=== PATIENT | female | born 1985 | race Caucasian/White ===

== ENCOUNTER 2016-09-18 08:30 | Emergency (ER) | payer BC ==
--- NOTE | 2016-09-18 08:40 | EDM.PDOC ---
ED HPI GENERAL MEDICAL PROBLEM - General Chief Complaint: Abdominal Pain Stated Complaint: [id number] PAIN IN RIGHT ABDOMEN Time Seen by Provider: 09/18/16 08:37 Source of Information: Reports: Patient, Old Records, RN, RN Notes Reviewed History Limitations: Reports: No Limitations - History of Present Illness INITIAL COMMENTS - FREE TEXT/NARRATIVE: Arrives from home by POV with c/o onset of RUQ abdominal pain a couple of days ago. Pt states that she had been constipated and use a laxative which resulted in several bowel movements, but the pain did not go away. Now the pain has moved lower and increased. She admits to mild nausea on/off. Denies radiating pain, fever, chills, vomiting, diarrhea, abdominal distention, or urinary Sx's. Onset: Gradual Duration: Day(s): (2) Location: Reports: Abdomen Quality: Reports: Ache Severity: Moderate Improves with: Reports: None Worsens with: Reports: None Context: Denies: Activity, Exercise, Lifting, Sick Contact, Trauma Associated Symptoms: Reports: No Other Symptoms Treatments [employer]PER[employer]OR: Reports: Home Treatments Right Upper Abdomen Pain Score (Numeric/FACES): 8 - Related Data Allergies Allergy/AdvReac Type Severity Reaction Status Date / Time morphine Allergy Itching Verified 12/16/14 06:01 peanut Allergy Shortness Verified 12/16/14 06:01 of Breath cat dander Allergy Shortness Uncoded 12/16/14 06:01 of Breath Home Meds: Home Meds Levonorgestrel [Mirena] 1 unit VAG ASDIRECTED 01/31/14 [History] Ketoconazole [Ketoconazole 2%] 1 applic TOP ASDIRECTED 03/08/14 [History] Clobetasol [Clobetasol 0.05%] 1 squirt TOP ASDIRECTED 12/12/14 [History] Hydrocortisone [Anusol-HC] 1 squirt TOP BID PRN 12/15/14 [History] Adalimumab [Humira] 09/18/16 [History] Past Medical History Gastrointestinal History: Reports: Cholelithiasis Endocrine/Metabolic History: Reports: Obesity/BMI 30+ - Past Surgical History GI Surgical History: Reports: Cholecystectomy, Colonoscopy Social & Family History - Family History Cardiac: Reports: CAD Neurological: Reports: CVA - Tobacco Use Smoking Status *Q: Current Every Day Smoker Tobacco Use Within Last Twelve Months: Cigarettes Years of Tobacco use: 9 Used Tobacco, but Quit: No Smoking Cessation Information Provided To Patient: Patient Refused Second Hand Smoke Exposure: No Second Hand Smoke Education Provided: No - Alcohol Use Days Per Week of Alcohol Use: 0 - Recreational Drug Use Recreational Drug Use: No - Living Situation & Occupation Living situation: Reports: Occupation: Employed ED ROS GENERAL - Review of Systems Review Of Systems: ROS reveals no pertinent complaints other than HPI. ED EXAM, GI/ABD - Physical Exam Exam: See Below Exam Limited By: No Limitations General Appearance: Alert, WD/WN, No Apparent Distress, Obese Eyes: Bilateral: Normal Appearance Throat/Mouth: Normal Inspection Head: Atraumatic, Normocephalic Neck: Normal Inspection Respiratory/Chest: No Respiratory Distress, Lungs Clear, Normal Breath Sounds, No Accessory Muscle Use, Chest Non-Tender Cardiovascular: Regular Rate, Rhythm GI/Abdominal: Normal Bowel Sounds, Soft, No Distention, No Abnormal Bruit, Tenderness (RLQ), Rebound. No: Guarding, Rigidity (Female) Exam: Deferred Rectal (Female) Exam: Deferred Back Exam: Normal Inspection Extremities: Normal Inspection Neurological: Alert, Oriented, CN II-XII Intact, Normal Cognition, Normal Gait, No Motor/Sensory Deficits Psychiatric: Normal Affect, Normal Mood Skin Exam: Warm, Dry, Intact, Normal Color, No Rash Course - Vital Signs Last Recorded V/S: Last Vital Signs Temp 36.6 C 09/18/16 08:40 Pulse 100 09/18/16 08:40 Resp 16 09/18/16 08:40 BP 153/107 H 09/18/16 08:40 Pulse Ox 97 09/18/16 08:40 - Orders/Labs/Meds Orders: Active Orders 24 hr Category Date Time Status Peripheral IV Care [RC] . DIRECTED Care 09/18/16 08:57 Active Abdomen Pelvis w Cont [CT] Stat Exams 09/18/16 08:58 Taken Sodium Chloride 0.9% [Saline Flush] Med 09/18/16 08:56 Active 10 ml FLUSH ASDIRECTED PRN Peripheral IV Insertion Adult [OM.PC] Stat Oth 09/18/16 08:56 Ordered Medication Orders Sodium Chloride (Saline Flush) 10 ml FLUSH ASDIRECTED PRN PRN Reason: Keep Vein Open Labs: Laboratory Tests 09/18/16 09/18/1609/18/17 Range/Units 09:09 09:09 09:10 WBC 7.5 (5.0-10.0) 10^3/uL RBC 4.95 (4.2-5.4) 10^6/uL Hgb 14.8 (12.0-16.0) g/dL Hct 45.1 (37.0-47.0) % MCV 91.1 (80-100) fL MCH 29.9 (27.0-34.0) pg MCHC 32.8 L (33.0-35.0) g/dL Plt Count 224 (150-450) 10^3/uL Neut % (Auto) 61.1 (42.2-75.2) % Lymph % (Auto) 24.6 (20.5-50.1) % Bond % (Auto) 8.9 H (2-8) % Eos % (Auto) 5.1 H (1.0-3.0) % Baso % (Auto) 0.3 (0.0-1.0) % Sodium 141 (135-145) mmol/L Potassium 3.9 (3.6-5.0) mmol/L Chloride 107 (101-111) mmol/L Carbon Dioxide 23.0 (21.0-31.0) mmol/L Anion Gap 14.9 BUN 11 (7-18) mg/dL Creatinine 0.7 (0.6-1.3) mg/dL Est Cr Clr Drug Dosing 121.69 mL/min Estimated GFR (MDRD) > 60 BUN/Creatinine Ratio 15.71 Glucose 101 (74-105) mg/dL Calcium 9.1 (8.4-10.2) mg/dl Total Bilirubin 0.5 (0.2-1.0) mg/dL AST 23 (10-42) IU/L ALT 36 (10-60) IU/L Alkaline Phosphatase 60 (42-121) IU/L Total Protein 7.7 (6.7-8.2) g/dl Albumin 4.2 (3.2-5.5) g/dl Globulin 3.5 Albumin/Globulin Ratio 1.20 Amylase 38 (28-100) U/L Lipase 31 (22-51) U/L Urine Color (YELLOW) Urine Appearance (CLEAR) Urine pH (5.0-9.0) Ur Specific [place] (1.005-1.030) Urine Protein (NEGATIVE) Urine Glucose (UA) (NEGATIVE) Urine Ketones (NEGATIVE) Urine Occult Blood (NEGATIVE) Urine Nitrite (NEGATIVE) Urine Bilirubin (NEGATIVE) Urine Urobilinogen (0.2-1.0) mg/dL Ur Leukocyte Esterase (NEGATIVE) Urine RBC /HPF Urine WBC (0-5/HPF) /HPF Ur Epithelial Cells /HPF Urine Bacteria (0-FEW/HPF) /HPF Urine HCG, Qual Negative 09/18/16 Range/Units 09:10 WBC (5.0-10.0) 10^3/uL RBC (4.2-5.4) 10^6/uL Hgb (12.0-16.0) g/dL Hct (37.0-47.0) % MCV (80-100) fL MCH (27.0-34.0) pg MCHC (33.0-35.0) g/dL Plt Count (150-450) 10^3/uL Neut % (Auto) (42.2-75.2) % Lymph % (Auto) (20.5-50.1) % Bond % (Auto) (2-8) % Eos % (Auto) (1.0-3.0) % Baso % (Auto) (0.0-1.0) % Sodium (135-145) mmol/L Potassium (3.6-5.0) mmol/L Chloride (101-111) mmol/L Carbon Dioxide (21.0-31.0) mmol/L Anion Gap BUN (7-18) mg/dL Creatinine (0.6-1.3) mg/dL Est Cr Clr Drug Dosing mL/min Estimated GFR (MDRD) BUN/Creatinine Ratio Glucose (74-105) mg/dL Calcium (8.4-10.2) mg/dl Total Bilirubin (0.2-1.0) mg/dL AST (10-42) IU/L ALT (10-60) IU/L Alkaline Phosphatase (42-121) IU/L Total Protein (6.7-8.2) g/dl Albumin (3.2-5.5) g/dl Globulin Albumin/Globulin Ratio Amylase (28-100) U/L Lipase (22-51) U/L Urine Color Yellow (YELLOW) Urine Appearance Slightly cloudy (CLEAR) Urine pH 7.0 (5.0-9.0) Ur Specific [place] 1.015 (1.005-1.030) Urine Protein Negative (NEGATIVE) Urine Glucose (UA) Negative (NEGATIVE) Urine Ketones Negative (NEGATIVE) Urine Occult Blood Negative (NEGATIVE) Urine Nitrite Negative (NEGATIVE) Urine Bilirubin Negative (NEGATIVE) Urine Urobilinogen 0.2 (0.2-1.0) mg/dL Ur Leukocyte Esterase Trace H (NEGATIVE) Urine RBC Not seen /HPF Urine WBC 0-5 (0-5/HPF) /HPF Ur Epithelial Cells Many H /HPF Urine Bacteria Moderate H (0-FEW/HPF) /HPF Urine HCG, Qual Meds: Medications Generic Name Dose Route Start Last Admin Trade Name Freq PRN Reason Stop Dose Admin Sodium Chloride 10 ml 09/18/16 08:56 Saline Flush FLUSH ASDIRECTED PRN Keep Vein Open Discontinued Medications Generic Name Dose Route Start Last Admin Trade Name Freq PRN Reason Stop Dose Admin Iopamidol 100 ml 09/18/16 08:57 09/18/16 09:45 Isovue-300 (61%) IVPUSH 09/18/16 08:58 125 ml ONETIME ONE Administration Pt declined pain medication. - Radiology Interpretation Free Text/Narrative:: CT Abd/Pelvis: normal appendix, no acute pathology per Rad. report; moderately lrg. stool burden. CT Results Date: 09/18/16 Departure - Departure Time of Disposition: 09:57 Disposition: Home, Self-Care 01 Condition: Good Clinical Impression: Elevated blood pressure reading without diagnosis of hypertension Abdominal pain Qualifiers: Abdominal location: right lower quadrant Qualified Code(s): R10.31 - Right lower quadrant pain Constipation Qualifiers: Constipation type: unspecified constipation type Qualified Code(s): K59.00 - Constipation, unspecified - Discharge Information Instructions: Constipation, Adult, [id number], Abdominal Pain, Adult, Easy-to -Read, Hypertension, [id number] Forms: ED Department Discharge Additional Instructions: Rx: Zofran 4mg Drink plenty of water. Follow up in clinic in 2 days if not improved. Return to ER if you develop a fever, or severe pain. Monitor your blood pressure several times a week, and see your primary doctor about your blood pressure some time next week. - My Orders Last 24 Hours: My Active Orders 09/18/16 08:56 Sodium Chloride 0.9% [Saline Flush] 10 ml FLUSH ASDIRECTED PRN Peripheral IV Insertion Adult [OM.PC] Stat 09/18/16 08:57 Peripheral IV Care [RC] . DIRECTED 09/18/16 08:58 Abdomen Pelvis w Cont [CT] Stat - Assessment/Plan Last 24 Hours: My Active Orders 09/18/16 08:56 Sodium Chloride 0.9% [Saline Flush] 10 ml FLUSH ASDIRECTED PRN Peripheral IV Insertion Adult [OM.PC] Stat 09/18/16 08:57 Peripheral IV Care [RC] . DIRECTED 09/18/16 08:58 Abdomen Pelvis w Cont [CT] Stat
[2016-09-18 08:42] VITALS: BP 153/107
[2016-09-18] MEDS ORDERED: Sodium Chloride 0.9% 10 ML Syringe FLUSH PRN (08:56)
[2016-09-18] MEDS ORDERED: Iopamidol 612 MG/ML 100 ML Bottle IVPUSH ONE (08:57)
[2016-09-18 09:36] LABS: CHLORIDE,CL 107 mmol/L (101-111); SODIUM,NA 141 mmol/L (135-145)
[2016-09-18] MEDS ORDERED: Bisacodyl 5 MG Tab PO ONE (10:04)
--- NOTE | 2016-09-18 10:21 | CT ---
CLINICAL HISTORY: 30-year-old 280 pound female with right abdominal pain and now "rebound" who has h ad a previous cholecystectomy (white blood cell count 7500). Rule out appendicitis or other intraper itoneal abnormality. SCAN TECHNIQUE: Volume acquisition of data from the abdomen and pelvis obtained during the intraveno us administration 7 125 cc nonionic Isovue contrast while the patient was lying supine on the [employer] s multislice scanner [place], [place]. All data archived in the PACS system for storage, reformatting and study. INTERPRETATION: Surgical clips gallbladder fossa. Liver, stomach, spleen, pancreas, adrenal glands a nd kidneys anatomically correct and otherwise unremarkable. Normal appendix RLQ. No sign of calcified appendicolith, periappendiceal inflammatory "dirty" perito colette fat, abscess or mechanical bowel obstruction. No abdominal mass lesion, retroperitoneal adenopathy, signs of mechanical bowel obstruction, ascites or free air. IUD. 5 cm diameter cyst left adnexa presumably originates in the ovary. No other pelvic mass or ly mphadenopathy. Normal caliber aortoiliac vessels. Lumbar lordosis. No pathologic skeletal lesion, fracture or spond ylolisthesis. Platelike atelectasis left base. Normal cardiac silhouette. Lung bases otherwise clear. CONCLUSION: Cholecystectomy. IUD. Large left ovarian cyst. Normal appendix.
== END 2016-09-18 10:20 | disposition home or self-care (01) ==
LOC: DL.ED 08:30
DX: R10.31 Right lower quadrant pain (principal); K59.00 Constipation, unspecified; R03.0 Elevated blood-pressure reading, without diagnosis of hypertension; Z90.49 Acquired absence of other specified parts of digestive tract; N83.202 Unspecified ovarian cyst, left side; Z97.5 Presence of (intrauterine) contraceptive device; E66.9 Obesity, unspecified; Z79.899 Other long term (current) drug therapy; F17.210 Nicotine dependence, cigarettes, uncomplicated
CPT/HCPCS: 36415; 74177; 80053; 81001; 81025; 82150; 83690; 85025; 99284; A9270; J7050; Q9967

== ENCOUNTER 2016-11-29 21:31 | Emergency (ER) | payer BC ==
[2016-11-29 21:36] VITALS: BP 138/85
[2016-11-29] MEDS ORDERED: Azithromycin 250 MG Tab PO ONE (21:49)
[2016-11-29] MEDS ORDERED: predniSONE 20 MG Tab PO ONE (21:49)
--- NOTE | 2016-11-29 21:54 | EDM.PDOC ---
ED HPI GENERAL MEDICAL PROBLEM - General Chief Complaint: ENT Problem Stated Complaint: HEAD COLD, [id number] Time Seen by Provider: 11/29/16 21:50 Source of Information: Reports: Patient History Limitations: Reports: No Limitations - History of Present Illness INITIAL COMMENTS - FREE TEXT/NARRATIVE: c/o sinus congestion. - Related Data Allergies Allergy/AdvReac Type Severity Reaction Status Date / Time morphine Allergy Itching Verified 11/29/16 21:36 peanut Allergy Shortness Verified 11/29/16 21:36 of Breath cat dander Allergy Shortness Uncoded 11/29/16 21:36 of Breath Home Meds: Home Meds Levonorgestrel [Mirena] 1 unit VAG ASDIRECTED 01/31/14 [History] Ketoconazole [Ketoconazole 2%] 1 applic TOP ASDIRECTED 03/08/14 [History] Clobetasol [Clobetasol 0.05%] 1 squirt TOP ASDIRECTED 12/12/14 [History] Hydrocortisone [Anusol-HC] 1 squirt TOP BID PRN 12/15/14 [History] Adalimumab [Humira] 40 mg SQ ASDIRECTED 09/18/16 [History] Past Medical History Gastrointestinal History: Reports: Cholelithiasis, Hemorrhoids Endocrine/Metabolic History: Reports: Obesity/BMI 30+ Dermatologic History: Reports: Psoriasis - Past Surgical History HEENT Surgical History: Reports: Tonsillectomy GI Surgical History: Reports: Cholecystectomy, Colonoscopy Social & Family History - Family History Cardiac: Reports: CAD Neurological: Reports: CVA - Tobacco Use Smoking Status *Q: Never Smoker Years of Tobacco use: 9 Used Tobacco, but Quit: No Month Tobacco Last Used: 2015 Second Hand Smoke Exposure: No - Caffeine Use Caffeine Use: Reports: Coffee, Tea - Alcohol Use Days Per Week of Alcohol Use: 0 - Recreational Drug Use Recreational Drug Use: No - Living Situation & Occupation Living situation: Reports: Occupation: Employed ED ROS ENT - Review of Systems Review Of Systems: ROS reveals no pertinent complaints other than HPI. ED EXAM, ENT - Physical Exam Exam: See Below Exam Limited By: No Limitations General Appearance: Alert, WD/WN, No Apparent Distress Eye Exam: Bilateral Eye: PERRL (pupils ER @ 4mm) Ears: TM Dullness Nose: Normal Inspection Mouth/Throat: Normal Inspection, Normal Oropharynx Head: Atraumatic Neck: Non-Tender, Full Range of Motion Respiratory/Chest: No Respiratory Distress Cardiovascular: Regular Rate, Rhythm GI/Abdominal: Soft, Non-Tender Neurological: Alert, Oriented, Normal Cognition, Normal Gait, No Motor/Sensory Deficits Psychiatric: Normal Affect, Normal Mood Skin: Warm, Dry, Normal Color Lymphatic: No Adenopathy Course - Vital Signs Last Recorded V/S: Last Vital Signs Temp 36.6 C 11/29/16 21:34 Pulse 98 11/29/16 21:34 Resp 18 11/29/16 21:34 BP 138/85 11/29/16 21:34 Pulse Ox 100 11/29/16 21:34 - Orders/Labs/Meds Orders: Active Orders 24 hr Category Date Time Status Azithromycin [Zithromax] Med 11/29/16 21:49 Once 500 mg PO ONETIME ONE predniSONE Med 11/29/16 21:49 Once 20 mg PO ONETIME ONE Meds: Medications Discontinued Medications Generic Name Dose Route Start Last Admin Trade Name Freq PRN Reason Stop Dose Admin Azithromycin 500 mg 11/29/16 21:49 Zithromax PO 11/29/16 21:50 ONETIME ONE Prednisone 20 mg 11/29/16 21:49 Prednisone PO 11/29/16 21:50 ONETIME ONE Departure - Departure Time of Disposition: 21:53 Disposition: Home, Self-Care 01 Condition: Good Clinical Impression: Sinusitis Qualifiers: Sinusitis location: frontal Chronicity: subacute Qualified Code(s): J01.10 - Acute frontal sinusitis, unspecified - Discharge Information Instructions: Sinusitis, Adult, [id number] Additional Instructions: 1) rest as much as possible 2) recheck if feels worse rx given; z-shama medrol dospak - My Orders Last 24 Hours: My Active Orders 11/29/16 21:49 Azithromycin [Zithromax] 500 mg PO ONETIME ONE predniSONE 20 mg PO ONETIME ONE - Assessment/Plan Last 24 Hours: My Active Orders 11/29/16 21:49 Azithromycin [Zithromax] 500 mg PO ONETIME ONE predniSONE 20 mg PO ONETIME ONE
== END 2016-11-29 22:01 | disposition home or self-care (01) ==
LOC: DL.ED 21:31
DX: J01.10 Acute frontal sinusitis, unspecified (principal); L40.9 Psoriasis, unspecified; E66.9 Obesity, unspecified; Z91.010 Allergy to peanuts; Z91.048 Other nonmedicinal substance allergy status; Z98.890 Other specified postprocedural states; Z90.49 Acquired absence of other specified parts of digestive tract; Z88.5 Allergy status to narcotic agent
CPT/HCPCS: 99283; A9270